=== PATIENT | female | born 1985 | race Caucasian/White ===

== ENCOUNTER 2018-05-18 13:06 | Emergency (ER) | payer OTHER ==
[2018-05-18 13:51] VITALS: BP 123/74; PULSE 84; TEMP 98.5; BMI 42.5
--- NOTE | 2018-05-18 14:48 | PDOC ---
History of Present Illness - General Chief Complaint: Sore Throat Stated Complaint: SORE THROAT Time Seen by Provider: 05/18/18 14:43 - History of Present Illness Initial Comments: 05/18/18 14:47 32-year-old female without comorbidities presents for evaluation of sore throat 2 weeks. She is 7 weeks at this point no fever Past History - Past Medical History Allergies/Adverse Reactions: Allergies Allergy/AdvReac Type Severity Reaction Status Date / Time No Known Allergies Allergy Verified 05/18/18 13:49 Home Medications: Ambulatory Orders Vit No.130/Iron/Folic [ Vitamins] 1 each PO DAILY 09/10/15 - Surgical History Abdominal Surgery: Yes (GASTRIC SLEEVE) - Suicide/Smoking/Psychosocial Hx Smoking Status: No Smoking History: Never smoked Number of Cigarettes Smoked Daily: 0 Hx Alcohol Use: No Drug/Substance Use Hx: No Substance Use Type: Alcohol Review of Systems - Review of Systems Constitutional: No: Fever HEENTM: Yes: Throat Pain, Difficulty Swallowing *Physical Exam - Vital Signs Last Vital Signs Temp Pulse Resp BP Pulse Ox 98.5 F 84 16 123/74 99 05/18/18 13:49 05/18/18 13:49 05/18/18 13:49 05/18/18 13:49 05/18/18 13:49 - Physical Exam Comments: 05/18/18 14:48 HEAD: NC/AT EYES: Conjuntiva clear Ears: Canals and TM's normal NOSE: No d/c THROAT: Moist mucous membrances, oral pharanx clear, uvula midline NECK: Supple without adenopathy CARDIAC: S1 S2 LUNGS: CTA Full and Equal breath sounds ABDOMEN: Soft NT ND MS: Full ROM in all joints without edema NEUROLOGIC: No gross sensory or motor deficits, NVID SKIN: Normal color and temperature no lesions or rashes Moderate Sedation - Procedure Monitoring Vital Signs: Procedure Monitoring Vital Signs Temperature 98.5 F 05/18/18 13:49 Pulse Rate 84 05/18/18 13:49 Respiratory Rate 16 05/18/18 13:49 Blood Pressure 123/74 05/18/18 13:49 O2 Sat by Pulse Oximetry (%) 99 05/18/18 13:49 Medical Decision Making - Medical Decision Making 05/18/18 15:17 Unimpressive examination. We'll treat as a viral pharyngitis follow-up with OB/ RODEO CLOWN. *DC/Admit/Observation/Transfer Diagnosis at time of Disposition: Viral pharyngitis - Discharge Dispostion Disposition: HOME Condition at time of disposition: Stable Decision to Admit order: No - Referrals Referrals: Ahmet Birmingham [Primary Care Provider] - - Patient Instructions Printed Discharge Instructions: Viral Pharyngitis Additional Instructions: Return to the emergency room for worsening symptoms. Please follow-up with your primary care [facility] for further evaluation and treatment options. Your strep test today was negative a culture was sent. He may take Tylenol as directed for pain. Only take Tylenol. - Post Discharge Activity
== END 2018-05-18 15:31 | disposition home or self-care (01) ==
LOC: JERFT 13:06
DX: O99.89 Other specified diseases and conditions complicating pregnancy, childbirth and the puerperium (principal); J02.9 Acute pharyngitis, unspecified; Z3A.01 Less than 8 weeks gestation of pregnancy
CPT/HCPCS: 87070; 87880; 99281-25

== ENCOUNTER 2023-06-23 15:32 | Emergency (ER) | payer OTHER ==
[2023-06-23 15:38] VITALS: BP 134/81; PULSE 87; RESP 20; TEMP 97.8; BMI 41.4
[2023-06-23 17:04] LABS: BASO % 0.8 % (0-2.0); EOS % 0.5 % (0-4.5); HEMATOCRIT 38.4 % (32.4-45.2); HEMOGLOBIN 12.5 GM/dL (10.7-15.3); LYMPH % 15.7 % (8-40); MCH 29.7 pg (25.7-33.7); MCHC 32.5 g/dl (32.0-36.0); MEAN CELL VOLUME 91.3 fl (80-96); MEAN PLT VOLUME 8.6 fl (7.5-11.1); MONO % 6.3 % (3.8-10.2); NEUT % 76.7 % (42.8-82.8); PLATELET COUNT 227 10^3/uL (134-434); RDW 14.1 % (11.6-15.6); WHITE BLOOD COUNT 12.2 K/mm3 (4.0-10.0)
[2023-06-23 17:33] LABS: URINE APPEARANCE TURBID; URINE BILIRUBIN NEGATIVE (NEGATIVE); URINE COLOR RED; URINE GLUCOSE (UA) NEGATIVE (NEGATIVE); URINE KETONE TRACE (NEGATIVE)
[2023-06-23 17:34] LABS: URINE LEUK ESTERASE SMALL (NEGATIVE); URINE NITRITE NEGATIVE (NEGATIVE)
[2023-06-23] MEDS ORDERED: CEPHALEXIN MONOHYDRATE 500 MG CAPSULE (UD) ONE (18:16)
[2023-06-23] MEDS: CEPHALEXIN MONOHYDRATE 500 MG CAPSULE (UD) PO ONE (18:18)
== END 2023-06-23 19:17 | disposition home or self-care (01) ==
LOC: JER 15:32
DX: O26.891 Other specified pregnancy related conditions, first trimester (principal); R10.2 Pelvic and perineal pain; O23.41 Unspecified infection of urinary tract in pregnancy, first trimester; Z3A.01 Less than 8 weeks gestation of pregnancy
CPT/HCPCS: 36415; 76817-TC; 81003; 81015; 84702; 85025; 86850; 86900; 86901; 87070; 87086; 87205; 99284-25